=== PATIENT | male | born 2005 | race African-American/Black ===

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

== ENCOUNTER 2025-10-18 19:47 | Emergency (ER) | payer SELFPAY ==
[~2025-10-18] VITALS: Ht 172.7 cm; Wt 82.0 kg
[2025-10-18 20:07] VITALS: O2SAT 100
[2025-10-18 22:40] LABS: CLARITY URINE TURBID (CLEAR); COLOR URINE DARK YELLOW (YELLOW); GLUCOSE URINE NEGATIVE (NEGATIVE); KETONES URINE TRACE (NEGATIVE); LEUKOCYTE ESTERASE URINE 3+ (NEGATIVE); NITRITE URINE NEGATIVE (NEGATIVE); OCCULT BLOOD URINE TRACE (NEGATIVE); PH URINE 6.5 (4.5-8.0); PROTEIN URINE 1+ (NEGATIVE); SPECIFIC GRAVITY URINE 1.036 (1.005-1.030); UROBILINOGEN URINE 1.0 E.U./dL (0.2-1.0)
[2025-10-18] MEDS: AZITHROMYCIN 500 MG TABLET PO ONE (22:40)
[2025-10-18] MEDS: CEFTRIAXONE SODIUM 500MG VIAL IM ONE (22:42)
[2025-10-18 22:54] VITALS: BP 101/69; PULSE 81; RESP 18; TEMP 36.7; O2SAT 97
[2025-10-18 23:28] LABS: BACTERIA URINE 1+; RBC URINE 0-2 /hpf (0-2); SQUAMOUS EPITHELIAL CELL URINE FEW /lpf (RARE/1+)
[2025-10-18 23:29] LABS: WBC URINE TNTC /hpf (0-2)
[2025-10-21 04:07] LABS: CHLAMYDIA TRACHOMATIS NAA Positive (Negative); NEISSERIA GONORRHOEAE NAA Positive (Negative)
== END 2025-10-18 22:54 | disposition home or self-care (01) ==
LOC: ER 19:47
DX: A64 Unspecified sexually transmitted disease (principal); Z88.0 Allergy status to penicillin; Z79.899 Other long term (current) drug therapy
CPT/HCPCS: 87491; 87591; 81003; 87086; 96372; 99283; J0696; Z7610